=== PATIENT | male | born 1955 | race Caucasian/White ===

== ENCOUNTER 2017-01-17 08:09 | Inpatient (IN) | payer OTHER, MEDICARE ==
[~2017-01-17] VITALS: Ht 165.1 cm; Wt 61.2 kg
[2017-01-17 08:09] VITALS: BP 115/83
[2017-01-17 08:30] VITALS: BP 115/83
[2017-01-17 08:44] LABS: BASO % 0.5 % (0.0-1.0); EOS # 0.2 10*3/uL (0.0-0.4); EOS % 2.7 % (1.0-4.0); HEMOGLOBIN 13.5 g/dl (14.0-18.0); LYMPH # 1.3 10*3/uL (1.3-4.4); LYMPH % 17.3 % (27.0-41.0); MEAN CELL VOLUME 90.9 fl (80.0-94.0); MEAN CORPUSCULAR HGB 29.2 pg (27.0-31.0); MEAN CORPUSCULAR HGB CONC 32.1 g/dl (33.0-37.0); MEAN PLATELET VOLUME 9.3 fl (9.6-12.3); MONO # 0.6 10*3/uL (0.1-1.0); MONO % 8.1 % (3.0-9.0); NEUT # 5.3 10*3/uL (2.3-7.9); NEUT % 71.1 % (47.0-73.0); PLATELET COUNT AUTOMATED 241 10*3/uL (130-400); RED BLOOD COUNT 4.62 10*6/uL (4.50-5.90); RED CELL DISTRI WIDTH 12.7 % (0-14.5); WHITE BLOOD COUNT 7.5 10*3/uL (4.8-10.8)
[2017-01-17 08:53] LABS: ACT PARTIAL THROMBO TIME 30.3 SECONDS (20.8-31.5); INTERNATIONAL NORM RATIO 1.6 (2.0-3.5)
[2017-01-17 09:02] LABS: ALBUMIN 3.1 gm/dl (3.1-4.5); ALKALINE PHOSPHATASE 71 U/L (45-117); BUN 16 mg/dl (7-24); CHLORIDE 104 mmol/L (98-107); CREATININE 0.69 mg/dL (0.70-1.30); POTASSIUM 4.1 mmol/L (3.5-5.1); SGOT/AST 12 IU/L (3-35); SGPT/ALT 16 U/L (12-78); SODIUM 141 mmol/L (136-145); TOTAL PROTEIN 6.2 gm/dL (6.4-8.2)
[2017-01-17 09:10] LABS: TROPONIN I < 0.015 ng/ml (<0.045)
--- NOTE | 2017-01-17 09:30 | NUR ---
SHOPPING INVESTIGATORDIAN TO DEPT AT THIS TIME AND ASSESSED PT'S FACE WITH THIS RN FOR BALDWIN AND/OR WOUNDS. PER DIAN THERE WILL NOT BE ANY SPECIAL WOUND CARE ORDERS. THIS RN CLEANED PT'S NARES AT THIS TIME. PT TOLERATED PROCEDURE WELL. PT DENIES PAIN OR IRRITATION TO THROAT. PT INSTRUCTED TO INFORM RN OF ANY RESPIRATORY CHANGES.
--- NOTE | 2017-01-17 09:40 | NUR ---
A 61, admitted to 5E, under the services of DULCE MARIA Carrillo DO with a diagnosis of SOB, FACIAL BALDWIN. Chief complaint is SOB. Patient arrived via bed from ER. Monitor applied. Initial assessment completed. Vital signs taken and recorded. DULCE MARIA CARRILLO DO notified of admission to the unit. Orders received. See assessment for past medical history, medications and allergies. Patient and/or family oriented to unit. [facility] visitation policy reviewed. Clothing/patient valuable form completed. VIOLET COELLO
[2017-01-17] MEDS ORDERED: SINGULAIR10 M1 PO (09:56)
[2017-01-17] MEDS ORDERED: PROTONIX40 MG PO (09:56)
[2017-01-17] MEDS ORDERED: SPIRIVA18 MCG PO (09:57)
[2017-01-17] MEDS ORDERED: CARAFATE1 G1 PO (09:57)
[2017-01-17] MEDS ORDERED: COUMADIN2 M1 PO (09:58)
[2017-01-17] MEDS ORDERED: FLECAINIDE ACE100 M1 PO (09:58)
--- NOTE | 2017-01-17 09:58 | NUR ---
HOME MEDS VERIFIED WITH [facility] [place].
--- NOTE | 2017-01-17 15:11 | NUR ---
IV LEVAQUIN INFUSING PER ORDER.
--- NOTE | 2017-01-17 15:33 | NUR ---
PHYSICAL THERAPY PAtient reports he is (I) with all mobility and has no PT needs. D/c PT at this time, Thank you for this referral. Gregoria Wells,PT
[2017-01-17 16:00] VITALS: BP 126/72
--- NOTE | 2017-01-17 16:00 | NUR ---
Patient reports that he is independent in all functional mobility, self care and no pain or limited mobility and does not require OT evaluation. D/C OT at this time d/t patients request. Thank you for this referral. Iman Engel OTR/l
[2017-01-18] VITALS: BP 110/72
[2017-01-18 06:37] LABS: HEMATOCRIT 43.2 % (42.0-52.0); MEAN CELL VOLUME 89.1 fl (80.0-94.0); MEAN CORPUSCULAR HGB 28.9 pg (27.0-31.0); MEAN CORPUSCULAR HGB CONC 32.4 g/dl (33.0-37.0); MEAN PLATELET VOLUME 10.2 fl (9.6-12.3); PLATELET COUNT AUTOMATED 267 10*3/uL (130-400); RED BLOOD COUNT 4.85 10*6/uL (4.50-5.90); RED CELL DISTRI WIDTH 12.4 % (0-14.5); WHITE BLOOD COUNT 8.9 10*3/uL (4.8-10.8)
[2017-01-18 06:47] LABS: ALBUMIN 3.1 gm/dl (3.1-4.5); BUN 16 mg/dl (7-24); CHLORIDE 100 mmol/L (98-107); POTASSIUM 4.2 mmol/L (3.5-5.1); SODIUM 137 mmol/L (136-145)
[2017-01-18 06:56] LABS: ALKALINE PHOSPHATASE 69 U/L (45-117); CHOLESTEROL 212 mg/dL (<200); CREATININE 0.77 mg/dL (0.70-1.30); FREE T4 1.26 ng/dl (0.76-1.46); HDL CHOLESTEROL 67 mg/dl (40-60); LDL CHOLESTEROL 136 mg/dL (9-159); PHOSPHOROUS 2.2 mg/dL (2.5-4.9); SGOT/AST 12 IU/L (3-35); SGPT/ALT 16 U/L (12-78); THYROID STIM HORMONE (HS) 0.082 uIU/ml (0.358-4.75); TOTAL PROTEIN 6.6 gm/dL (6.4-8.2); TRIGLYCERIDES 45 mg/dl (<150); VLDL CHOLESTEROL 9 mg/dL (6-40)
[2017-01-18 07:13] LABS: PLATELET SUFFICIENCY NORMAL (NORMAL); TOTAL CELLS COUNTED 100 #CELLS
[2017-01-18 07:49] LABS: VITAMIN D, 25-HYDROXY 19.9 ng/mL (30-100)
[2017-01-18 08:00] VITALS: BP 102/69
--- NOTE | 2017-01-18 08:30 | NUR ---
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 Patient states lives at HOME ALONE with . There are 0 steps in the home. Physician: DR ALAMO Pharmacy: [facility] Home health services: NONE Patient's level of ADLs: INDEPENDENT Patient has working utilities: YES DME: NEB/O2 FROM [facility] Follow-up physician's appointment after d/c: WILL BE MADE PRIOR TO DC Does patient want to access PORTAL?: Discharge plan HOME. MARYANNE ROBERTS
[2017-01-18 10:03] LABS: INTERNATIONAL NORM RATIO 2.4 (2.0-3.5)
--- NOTE | 2017-01-18 10:35 | NUR ---
MEDICATED PT PER PRN ORDER WITH XANAX FOR C/O ANXIETY.
--- NOTE | 2017-01-18 11:09 | NUR ---
SPEECH PATHOLOGY CONSULT RECEIVED AND APPRECIATED TO CLINICALLY EVALUATE PT'S SWALLOWING FUNCTION. HPI/PMHX: PT PRESENTS TO [facility] ON 01/17/17 AFTER SUSTAINING FACIAL BALDWIN 2/2 LIGHTING A CIGARRETTE WHILE [address] IN [address] ALSO ADMITTED WITH SOB AND COPD EXACERBATION. PT HAS H/O INTUBATION WITH TRACH AND PEG PLACEMENT (WITHIN PAST YEAR). GENERAL COMMENTS: DISCUSSED CASE WITH PT'S RN WHO HAD NO CONCERNS REGARDING SWALLOWING FUNCTION. UPON ENTRANCE TO ROOM, PT WAS AWAKE AND SEATED UPRIGHT IN BED, RECEIVING 3L 02/NC. HE REMAINED AWAKE, ALERT, AND COOPERATIVE THROUGHOUT ALTHOUGH WAS VERBOSE AT TIMES. HE DENIED CONCERNS REGARDING EATING/DRINKING AND DENIED COUGHING, CHOKING, AND STICKING SENSATION DURING PO. PT ENDORSED H/O TRACH AND PEG PLACEMENT BUT DENIED DIFFICULTY INITIATING ORAL INTAKE FOLLOWING. HE REPORTED TOLERATING A REGULAR DIET WITH THIN LIQUIDS AT HOME. ORAL MECHANISM EXAM: SYMMETRY, STRENGTH, ROM, COORDINATION, AND ACCURACY OF MOVEMENT OF LIPS, TONGUE, UPPER AND LOWER FACE, AND PALATE WERE WFL. NATURAL DENTITION WAS PRESENT WITH MULTIPLE FRONT TEETH MISSING. VOLITIONAL COUGH WAS WFL FOR SHARPNESS. MOTOR SPEECH EXAM: CONVERSATIONAL SPEECH WAS C/B ADEQUATE RESPIRATORY SUPPORT FOR SENTENCE-LENGTH UTTERANCES, AND NORMAL RESONANCE, PROSODY, AND ARTICULATORY PRECISION. COMPREHENSIBILITY WAS 100% IN A QUIET ENVIRONMENT. SWALLOWING: PT SELF-FED THIN LIQUIDS VIA CUP X4 AND BITES OF COARSE SOLIDS X3. ORAL PHASE: ADEQUATE BOLUS ACCEPTANCE WITH NO ANTERIOR LOSS NOTED. MASTICATION WAS TIMELY. MILD ORAL RESIDUE NOTED POST-SWALLOW, CLEARED WITH THIN LIQUID WASH. PHARYNGEAL PHASE: HLE VISUALIZED. NO OVERT S/S OF ASPIRATION/PENETRATION WERE OBSERVED ACROSS ALL CONSISTENCIES. IMPRESSIONS: PT PRESENTS WITH NORMAL OROPHARYNGEAL SWALLOWING FUNCTION. CURRENT DIET OF REGULAR FOODS WITH THIN LIQUIDS REMAINS APPROPRIATE. PT'S RISK FACTORS FOR ASPIRATION INCLUDE DX OF COPD AND GERD; ADHERENCE TO PRECAUTIONS BELOW IS RECOMMENDED TO REDUCE THIS RISK. RECOMMENDATIONS: 1. CONTINUE CURRENT DIET OF REGULAR FOODS WTIH THIN LIQUIDS 2. STANDARD ASPIRATION PRECAUTIONS: FULLY UPRIGHT, AWAKE, AND ALERT FOR ALL PO; SMALL BITES/SIPS; ORAL CARE AT LEAST BID FINDINGS AND RECOMMENDATIONS WERE REVIEWED WITH PT WHO INDICATED UNDERSTANDING AND AGREEMENT. POC: NO FURTHER MEDICAL SECRETARY F/U IS INDICATED AT THIS TIME. PLEASE RECONSULT IF ADDITIONAL C/F ASPIRATION/DYSPHAGIA ARISE. THANK YOU FOR CONSULTING. MARU QURESHI, [facility]-MEDICAL SECRETARY
--- NOTE | 2017-01-18 11:35 | NUR ---
PT STATES RELIEF OF ANXIETY WITH EARLIER XANAX.
[2017-01-18 12:00] VITALS: BP 106/66
[2017-01-18 16:00] VITALS: BP 149/78
--- NOTE | 2017-01-18 16:01 | NUR ---
RESTING QUIETLY NO C/O NO DISTRESS NOTED. HOB ELEVATED WITH O2 ON. SEE SHIFT ASSESSMENT.
[2017-01-18] MEDS ORDERED: LOPRESSOR25 MG PO (17:34)
[2017-01-18] MEDS ORDERED: SYMB160 INH (17:36)
--- NOTE | 2017-01-18 18:32 | NUR ---
PT HAD FAMILY BRING IN MED BOTTLES. MED REC UPDATED WITH PT MED BOTTLES.
[2017-01-18 20:00] VITALS: BP 125/67
[2017-01-19] VITALS: BP 107/62
[2017-01-19 07:18] LABS: INTERNATIONAL NORM RATIO 2.7 (2.0-3.5)
[2017-01-19] MEDS ORDERED: PREDNISONE10 MG PO (07:55)
[2017-01-19] MEDS ORDERED: XANAX0.25 MG PO (07:55)
[2017-01-19] MEDS ORDERED: LEVOFLOXACIN500 MG PO (07:55)
[2017-01-19 08:00] VITALS: BP 108/60
[2017-01-19] MEDS ORDERED: COUMADIN2 M1 PO (09:45)
--- NOTE | 2017-01-19 12:16 | NUR ---
DISCHARGED HOME AFTER INSTRUCTIONS EXPLAINED TO PATIENT.
== END 2017-01-19 12:16 | disposition home or self-care (01) | DRG 935 ==
LOC: ED 08:09 → 5E 08:40 → EDHOLD 08:40 → 5E 08:41
PROVIDERS: Emergency Medicine; Registered Nurse; ADMIT Internal Medicine
DX: T20.10XA Burn of first degree of head, face, and neck, unspecified site, initial encounter (principal); J96.10 Chronic respiratory failure, unspecified whether with hypoxia or hypercapnia; Z99.81 Dependence on supplemental oxygen; J44.1 Chronic obstructive pulmonary disease with (acute) exacerbation; Z66 Do not resuscitate; I48.91 Unspecified atrial fibrillation; R13.10 Dysphagia, unspecified; K21.9 Gastro-esophageal reflux disease without esophagitis; Z51.5 Encounter for palliative care; I10 Essential (primary) hypertension; E55.9 Vitamin D deficiency, unspecified; R73.03 Prediabetes; F17.210 Nicotine dependence, cigarettes, uncomplicated; F41.9 Anxiety disorder, unspecified; Z51.81 Encounter for therapeutic drug level monitoring; Z71.6 Tobacco abuse counseling; Z79.01 Long term (current) use of anticoagulants